=== PATIENT | male | born 1985 | race Caucasian/White ===

== ENCOUNTER 2018-09-01 20:56 | Emergency (ER) | payer OTHER ==
[2018-09-01 21:22] VITALS: BP 151/88; PULSE 82; RESP 16; TEMP 98.9; O2SAT 100
--- NOTE | 2018-09-01 22:46 | ED PDOC ---
HPI: Eye Injury/Pain Time Seen by Provider: 09/01/18 21:31 Chief Complaint (Nursing): Eye Problem Chief Complaint (Provider): left eye redness, sty Past Medical History Vital Signs: Last Vital Signs Temp 98.9 F 09/01/18 21:18 Pulse 82 09/01/18 21:18 Resp 16 09/01/18 21:18 BP 151/88 H 09/01/18 21:18 Pulse Ox 100 09/01/18 21:18 - Home Medications Home Medications: Ambulatory Orders Medication Instructions Recorded Polymyxin/Trimethoprim Sulfate 1 drop XX Q6H 10 Days bottle 09/01/18 [Polytrim Ophth Soln] - Allergies Allergies/Adverse Reactions: Allergies Allergy/AdvReac Type Severity Reaction Status Date / Time No Known Allergies Allergy Verified 09/01/18 21:21 - ECG O2 Sat by Pulse Oximetry: 100 Disposition - Clinical Impression Clinical Impression: Conjunctivitis, Sty Counseled Patient/Family Regarding: Diagnosis, Need For Followup, Rx Given - Disposition Referrals: Coleman Hernández MD [Staff Provider] - Disposition: Routine/Home Disposition Time: 22:45 Condition: GOOD Prescriptions: Polymyxin/Trimethoprim Sulfate [Polytrim Ophth Soln] 1 drop XX Q6H 10 Days bottle Instructions: Conjunctivitis ([place])
== END 2018-09-01 22:50 | disposition home or self-care (01) ==
LOC: H.ER 20:56
DX: H10.9 Unspecified conjunctivitis (principal)